=== PATIENT | female | born 1955 | race Caucasian/White ===

== ENCOUNTER 2016-09-19 20:40 | Emergency (ER) | payer BC ==
[~2016-09-19] VITALS: Ht 175.3 cm; Wt 65.9 kg
[2016-09-19 20:49] VITALS: TEMP 97.9
[2016-09-19] MEDS ORDERED: TENORMIN100 MG PO (21:10)
[2016-09-19] MEDS ORDERED: SYNTHROID0.1 MG/TAB PO (21:11)
[2016-09-19] MEDS ORDERED: TAZTIA300 PO (21:11)
[2016-09-19 21:57] LABS: BASO % 0.4 % (0.0-2.0); EOS # 0.1 (0.0-0.7); EOS % 1.4 % (0-4.0); GRAN # 3.4 (1.4-6.5); GRAN % 66.2 % (42.2-75.2); HEMATOCRIT 37.6 % (37.0-47.0); HEMOGLOBIN 13.1 g/dl (12.5-16.0); LYMPH # 1.1 (1.2-3.4); LYMPH % 22.3 % (20.0-51.0); MEAN CELL VOLUME 95 fl (80.0-100.0); MEAN CORPUSCULAR HEMOGLOBIN 33 pg (27.0-31.0); MEAN CORPUSCULAR HGB CONC 35 g/dl (33.0-37.0); MEAN PLATELET VOLUME 9.6 fl (7.4-10.4); MONO # 0.5 (0.1-0.6); MONO % 9.1 % (1.7-9.3); PLATELET COUNT 220 K/mm3 (130-400); RED BLOOD COUNT 3.95 M/mm3 (4.10-5.30); REDCELL DISTRIBUTION WIDTH-CV 12.4 % (11.5-14.5); WHITE BLOOD COUNT 5.1 K/mm3 (4.8-10.8)
[2016-09-19 22:10] LABS: ADJUSTED CALCIUM 8.4 mg/dL (8.4-10.2); ALBUMIN 4.8 gm/dL (3.5-5.0); BILIRUBIN,TOTAL 0.9 mg/dL (0.0-1.0); CREATININE, serum 0.61 mg/dL (0.52-1.25); POTASSIUM 3.5 mmol/L (3.4-5.0); TOTAL PROTEIN 7.8 gm/dL (6.4-8.2)
[2016-09-19 22:29] LABS: PH 6 (5-8); SQUAMOUS EPITHELIAL 0-2 /hpf; URINE APPEARANCE Clear; URINE BACTERIA None Seen /hpf; URINE BILIRUBIN Negative (NEGATIVE); URINE BLOOD Negative (NEGATIVE); URINE COLOR Colorless; URINE GLUCOSE Negative (NEGATIVE); URINE KETONE Negative (NEGATIVE); URINE RBC 0-2 /hpf; URINE UROBILINOGEN Negative (NEGATIVE); URINE WBC 0-2 /hpf
[2016-09-19] MEDS ORDERED: FLEXERIL 1010 MG/TAB PO (22:57)
[2016-09-19] MEDS ORDERED: NORCO 325 MG-51 TAB PO (22:57)
[2016-09-19 22:59] VITALS: BP 188/104; PULSE 70
== END 2016-09-19 23:13 | disposition home or self-care (01) ==
LOC: COL.ER 20:40
PROVIDERS: Emergency Medicine
DX: S50.312A Abrasion of left elbow, initial encounter (principal); S00.03XA Contusion of scalp, initial encounter; I10 Essential (primary) hypertension; E07.9 Disorder of thyroid, unspecified; Z87.891 Personal history of nicotine dependence; Z23 Encounter for immunization; W10.1XXA Fall (on)(from) sidewalk curb, initial encounter; Y92.410 Unspecified street and highway as the place of occurrence of the external cause
CPT/HCPCS: J1885; J2765; J3010